=== PATIENT | male | born 1990 | race Native Hawaiian/Other Pacific Islander ===

== ENCOUNTER 2023-12-10 16:48 | Emergency (ER) | payer BC ==
--- NOTE | 2023-12-10 17:23 | ED ---
Abdominal Pain HPI - General Source: patient, RN notes reviewed <Leydi Mesa - Last Filed: 12/10/23 21:30> - General Source: patient, RN notes reviewed, old records reviewed <Cristo Presley - Last Filed: 12/10/23 21:47> - General Stated Complaint: blood in stool,SOB Time Seen by Provider: 12/10/23 17:01 - History of Present Illness Initial Comments: Quick [id number] male with no significant past medical history presents emergency department chief complaint of diffuse abdominal pain, bloody stools and nausea that began this morning. He endorses fevers and chills as well. Denies previous surgical abdominal history. (Leydi Mesa) Patient is a 33-year-old male who presents emergency department complaining of chronic mucousy stools with bright red blood per rectum. Has been ongoing for years. Patient states he had a little bit more severe of an episode at home 1 time. But also had bowel movements without blood. Also states he felt nauseous and had multiple episodes of nonbilious emesis. Thinks he saw streaks of blood in it once. Is not on blood thinners. Does not follow-up with GI physician. Denies chest pain, abdominal pain, diarrhea. Denies any fevers or chills. No sick contacts. Presents for further evaluation at this time. No history of colonoscopy or EGD. (Cristo Presley) - Related Data Previous Rx's Medication Instructions Recorded Famotidine 20 mg PO DAILY 14 Days #14 tab 12/10/23 Allergies Allergy/AdvReac Type Severity Reaction Status Date / Time No Known Allergies Allergy Verified 12/10/23 17:47 Review of Systems ROS Other: All systems not noted in ROS Statement are negative. <Leydi Mesa - Last Filed: 12/10/23 21:30> ROS Other: All systems not noted in ROS Statement are negative. <Cristo Presley - Last Filed: 12/10/23 21:47> ROS Statement: Those systems with pertinent positive or pertinent negative responses have been documented in the HPI. General Exam <Leydi Mesa - Last Filed: 12/10/23 21:30> <Cristo Presley - Last Filed: 12/10/23 21:47> - General Exam Comments Initial Comments: Visual Physical Exam Vital signs reviewed General: Well-appearing, nontoxic, no acute distress. Head: Normocephalic, atraumatic Eyes: PERRLA, EOMI ENT: Airway patent Chest: Nonlabored breathing Skin: No visual rash, normal skin tone Neuro: Alert and oriented 3 Musculoskeletal: No gross abnormalities (Leydi Mesa) General: Appears in no acute distress. HEAD: Normal with no signs of head trauma. EYES: PERRLA, EOMI, conjunctiva normal, no discharge. ENT: Hearing grossly intact, normal oropharynx. RESPIRATORY: Clear breath sounds bilaterally. No wheezes, rales, or rhonchi. C/V: Regular rate and rhythm. S1 and S2 auscultated, no edema, peripheral pulses 2+ and intact throughout ABD: Abdomen soft, nondistended. No significant tenderness to palpation. Rectal exam refused by patient. EXT: Normal range of motion, no obvious deformity SKIN: No rashes or lesions observed on exposed skin. NEURO: Oriented x 4. (Cristo Presley) Course Vital Signs 12/10/23 17:38 Temperature 97.9 F Pulse Rate 102 H Respiratory 18 Rate Blood Pressure 175/103 O2 Sat by Pulse 98 Oximetry Medical Decision Making - Lab Data Result diagrams: 12/10/23 17:56 12/10/23 17:56 <Leydi Mesa - Last Filed: 12/10/23 21:30> - Lab Data Result diagrams: 12/10/23 17:56 12/10/23 17:56 <Cristo Presley - Last Filed: 12/10/23 21:47> - Medical Decision Making I completed the quick note portion of this chart signed Leydi Mesa PA-C (Leydi Mesa) Was pt. sent in by a medical professional or institution ([facility], [facility], urgent care, hospital, or long term...) When possible be specific @ -No Did you speak to anyone other than the patient for history (EMS, parent, family, police, friend...)? What history was obtained from this source @ -No Did you review nursing and triage notes (agree or disagree)? Why? @ -I reviewed and agree with nursing and triage notes Were old charts reviewed (outside hosp., previous admission, EMS record, old EKG, old radiological studies, urgent care reports/EKG's, long term records)? Report findings @ -No old charts were reviewed Differential Diagnosis (chest pain, altered mental status, abdominal pain women, abdominal pain men, vaginal bleeding, weakness, fever, dyspnea, syncope, headache, dizziness, GI bleed, back pain, seizure, CVA, palpatations, mental health, musculoskeletal)? @ -Hemorrhoids, internal hemorrhoid, inflammatory bowel disease, GI bleed, this list is not all inclusive. EKG interpreted by me (3pts min.). @ -None done X-rays interpreted by me (1pt min.). @ -None done CT interpreted by me (1pt min.). @ -CT abdomen pelvis negative for any obvious acute intra-abdominal process. U/S interpreted by me (1pt. min.). @ -None done What testing was considered but not performed or refused? (CT, X-rays, U/S, labs)? Why? @ -None What meds were considered but not given or refused? Why? @ -None Did you discuss the management of the patient with other professionals (professionals i.e. , PA, [facility], lab, RT, psych nurse, outreach and education social worker, germination worker, teacher, ammunition officer, pillowcase turner)? Give summary @ -No Was smoking cessation discussed for >3mins.? @ -No Was critical care preformed (if so, how long)? @ -No Were there social determinants of health that impacted care today? How? (Homelessness, low income, unemployed, alcoholism, drug addiction, transportation, low edu. Level, literacy, decrease access to med. care, half-way, rehab)? @ -No Was there de-escalation of care discussed even if they declined (Discuss DNR or withdrawal of care, Hospice)? DNR status @ -No What co-morbidities impacted this encounter? (DM, HTN, Smoking, COPD, CAD, Can cer, CVA, ARF, Chemo, Hep., AIDS, mental health diagnosis, sleep apnea, morbid obesity)? @ -None Was patient admitted / discharged? Hospital course, mention meds given and route, prescriptions, significant lab abnormalities, going to OR and other pertinent info. @ -Patient presents to the emergency department with chronic findings and complaints. Has a history of chronic mucousy bloody stools. Also had 1 episode of the possible blood in his emesis prior to arrival as well. Originally seen a s a quick note. Vital signs are within acceptable limits. I evaluated the patient when he was placed in room. Laboratory studies are remarkable for a normal hemoglobin. Patient does have a leukocytosis of 17 which is likely nonspecific. BUN is low, not elevated. Lactic acid within normal limits. CT imaging returned remarkable for no obvious acute intra-abdominal process. I discussed results with the patient. Leukocytosis likely reactive. I did offer a rectal exam at this time however patient declines. I did recommend he follow-up with a GI physician and he will be given referral. He will be given prescription for Zofran and famotidine. He was in agreement this plan. He would like to go home. Strict return precautions discussed. I instructed the patient to follow up with their PCP in the next 1-3 days. I explained that the patient should return to the emergency department if they experience any worsening symptoms. Strict return precautions were discussed with the patient. The patient expressed understanding of these instructions. I answered all questions that the patient had. The patient was discharged home in good condition with their prescriptions and follow up information. Undiagnosed new problem with uncertain prognosis? @ -No Drug Therapy requiring intensive monitoring for toxicity (Heparin, Nitro, Insulin, Cardizem)? @ -No Were any procedures done? @ -No Diagnosis/symptom? @ -Chronic rectal bleeding, acute nausea and vomiting Acute, or Chronic, or Acute on Chronic? @ -Chronic Uncomplicated (without systemic symptoms) or Complicated (systemic symptoms)? @ -Uncomplicated Side effects of treatment? @ -No Exacerbation, Progression, or Severe Exacerbation? @ -No Poses a threat to life or bodily function? How? (Chest pain, USA, NV, pneumonia, PE, COPD, DKA, ARF, appy, cholecystitis, CVA, Diverticulitis, Homicidal, Suicidal, threat to staff... and all critical care pts) @ -Unlikely (Cristo Presley) - Lab Data Lab Results 12/10/23 12/10/23 12/10/23 Range/Units 17:56 17:56 17:56 WBC 17.4 H (3.8-10.6) k/uL RBC 5.81 (4.30-5.90) m/uL Hgb 17.2 (13.0-17.5) gm/dL Hct 52.8 (39.0-53.0) % MCV 90.9 (80.0-100.0) fL MCH 29.7 (25.0-35.0) pg MCHC 32.7 (31.0-37.0) g/dL RDW 12.4 (11.5-15.5) % Plt Count 343 (150-450) k/uL MPV 7.1 Neutrophils % 92 % Lymphocytes % 6 % Monocytes % 2 % Eosinophils % 1 % Basophils % 0 % Neutrophils # 15.9 H (1.3-7.7) k/uL Lymphocytes # 1.0 (1.0-4.8) k/uL Monocytes # 0.3 (0-1.0) k/uL Eosinophils # 0.1 (0-0.7) k/uL Basophils # 0.0 (0-0.2) k/uL Sodium 140 (137-145) mmol/L Potassium 4.1 (3.5-5.1) mmol/L Chloride 106 (98-107) mmol/L Carbon Dioxide 22 (22-30) mmol/L Anion Gap 12 mmol/L BUN 7 L (9-20) mg/dL Creatinine 0.60 L (0.66-1.25) mg/dL Est GFR (CKD-EPI)AfAm >90 (>60 ml/min/1.73 sqM) Est GFR (CKD-EPI)NonAf >90 (>60 ml/min/1.73 sqM) Glucose 128 H (74-99) mg/dL Plasma Lactic Acid Marty 2.0 (0.7-2.0) mmol/L Calcium 10.4 H (8.4-10.2) mg/dL Total Bilirubin 0.8 (0.2-1.3) mg/dL AST 22 (17-59) U/L ALT 26 (4-49) U/L Alkaline Phosphatase 98 (38-126) U/L Total Protein 8.1 (6.3-8.2) g/dL Albumin 5.0 (3.5-5.0) g/dL Amylase 63 (30-110) U/L Lipase 112 (23-300) U/L Disposition <Leydi Mesa - Last Filed: 12/10/23 21:30> Is patient prescribed a controlled substance at d/c from ED?: No Time of Disposition: 21:26 <Cristo Presley - Last Filed: 12/10/23 21:47> Clinical Impression: Rectal bleeding Disposition: HOME SELF-CARE Condition: Good Instructions (If sedation given, give patient instructions): Gastrointestinal Bleeding (ED) Additional Instructions: Follow-up with gastroenterology Dr. Vega. I believe you need a EGD as well as colonoscopy. Please return to the emergency department if worsening symptoms. Prescriptions: Famotidine 20 mg PO DAILY 14 Days #14 tab Referrals: None,Stated [Primary Care Provider] - 1-2 days Gladis Vega MD [STAFF PHYSICIAN] - 1-2 days Forms: Area PCPs
[2023-12-10 17:47] VITALS: BP 175/103; PULSE 102; RESP 18; TEMP 97.9
[2023-12-10 18:18] LABS: Basophils % (A) 0 %; Eosinophils # (A) 0.1 k/uL (0-0.7); Eosinophils % (A) 1 %; HCT 52.8 % (39.0-53.0); HGB 17.2 gm/dL (13.0-17.5); Lymphocytes % (A) 6 %; MCH 29.7 pg (25.0-35.0); MCHC 32.7 g/dL (31.0-37.0); MCV 90.9 fL (80.0-100.0); Mean Platelet Volume 7.1; Monocytes # (A) 0.3 k/uL (0-1.0); Monocytes % (A) 2 %; Neutrophils # (A) 15.9 k/uL (1.3-7.7); Neutrophils % (A) 92 %; Platelet Count 343 k/uL (150-450); RBC 5.81 m/uL (4.30-5.90); RDW 12.4 % (11.5-15.5); WBC 17.4 k/uL (3.8-10.6)
[2023-12-10 18:28] LABS: ALT 26 U/L (4-49); AST 22 U/L (17-59); African American GFR (CKD) >90 (>60 ml/min/1.73 sqM); Alkaline Phosphatase 98 U/L (38-126); Amylase 63 U/L (30-110); Anion Gap 12 mmol/L; Blood Urea Nitrogen 7 mg/dL (9-20); Calcium 10.4 mg/dL (8.4-10.2); Carbon Dioxide 22 mmol/L (22-30); Chloride 106 mmol/L (98-107); Glucose 128 mg/dL (74-99); Lipase 112 U/L (23-300); Non-African American GFR(CKD) >90 (>60 ml/min/1.73 sqM); Potassium 4.1 mmol/L (3.5-5.1); Sodium 140 mmol/L (137-145); Total Bilirubin 0.8 mg/dL (0.2-1.3); Total Protein 8.1 g/dL (6.3-8.2)
--- NOTE | 2023-12-10 19:05 | CT ---
EXAMINATION TYPE: CT abdomen pelvis w con DATE OF EXAM: 12/10/2023 COMPARISON: None HISTORY: blood in stool CT DLP: 1872 mGycm Automated exposure control for dose reduction was used. TECHNIQUE: Helical acquisition of images was performed from the lung bases through the pelvis. CONTRAST: Performed without Oral Contrast and with IV Contrast, patient injected with 100 ml mL of Isovue 300. FINDINGS: The lung bases are clear. The gallbladder is normal without distention, wall thickening, pericholecystic fluid or gallstones. T here is no biliary ductal dilatation. There is no focal mass or organomegaly involving the liver, pancreas, spleen or adrenal glands. There is no solid renal mass or hydronephrosis and there is homogeneous contrast enhancement of the r enal parenchyma. The caliber the abdominal aorta is normal is no retroperitoneal adenopathy or hemorr sherin. The bowel loops are normal in caliber and there is no evidence of dilatation or obstruction. No infla mmatory changes are identified in the bowel wall or mesentery. There is no free intraperitoneal air or fluid. No pelvic mass, free fluid, abscess or adenopathy. The osseous structures and soft tissues are intact. IMPRESSION: No significant abnormality seen. [facility], , 12/10/2023 7:03 PM
[2023-12-10] MEDS: ONDANSETRON 4 MG ODT STARTER PACK 2 TAB BTL PO STA (21:55)
[2023-12-10] MEDS: FAMOTIDINE 20 MG/2 ML VIAL IV STA (21:55)
[2023-12-10] MEDS: ONDANSETRON 4 MG/2 ML VIAL IVP STA (21:55)
== END 2023-12-10 22:02 | disposition home or self-care (01) ==
LOC: EC 16:48
DX: K62.5 Hemorrhage of anus and rectum (principal)
CPT/HCPCS: 36415; 74177; 80053; 82150; 83605; 83690; 85025; 96374; 96375; 99284

== ENCOUNTER 2024-03-07 06:41 | Day surgery (SDC) | payer BC ==
[2024-03-05 15:20] VITALS: BMI 39.0
[2024-03-07 07:29] VITALS: TEMP 98.7
[2024-03-07] MEDS: LACTATED RINGERS 1,000 ML IV SCH (07:33)
[2024-03-07] MEDS: IV FLUID CONTINUATION 1,000 ML IV ONE (07:34)
[2024-03-07] MEDS ORDERED: LIDOCAINE 1% INJ 10MG/ML (20 ML MDV) ONE (07:50)
[2024-03-07] MEDS ORDERED: PROPOFOL 10 MG/ML 20 ML VIAL IV ONE (07:50)
--- NOTE | 2024-03-07 08:11 | P.PCN ---
Date of Procedure: 03/07/24 Procedure(s) Performed: Brief history: Patient is a pleasant 33-year-old white male scheduled for an elective upper endoscopy as well as colonoscopy as a part of evaluation of remittent episodes of nausea vomiting and diarrhea for the last 1 to 2 years duration. He has 3-4 loose watery bowel movements daily with occasional blood in the stool Procedure performed: Esophagogastroduodenoscopy with biopsy Colonoscopy with biopsy and snare polypectomy Preoperative diagnosis: Nausea vomiting and diarrhea with intermittent rectal bleeding of 2 years duration Anesthesia: MAC Procedure: After informed consent was obtained from the patient was brought into the endoscopy unit and IV sedation was administered by anesthesia under continuous monitoring. Initially upper endoscopy was done. The Olympus GF 160 video endoscope was inserted inserted into the mouth and esophagus intubated without any difficulty and was gradually advanced into the stomach and duodenum and carefully examined. The bulb and second part of the duodenum appeared normal. The scope was then withdrawn into the stomach adequately insufflated with air and upon careful examination the antrum and body, cardia and fundus appeared normal. The scope was then withdrawn into the esophagus. The GE junction was located at 40 cm to the incisors. It appeared regular with no erythema erosions or ulcerations. Rest of the esophagus appeared normal. Patient tolerated the procedure well. At this time the patient continued to remain sedation. Initial digital rectal examination was normal. Olympus CF 160 video colonoscope was then inserted into the rectum and gradually advanced to the cecum without any difficulty. Careful examination was performed as the scope was gradually being withdrawn. The prep was excellent. Middle ileum was intubated in 20 cm visualized and appeared normal. The cecum, ascending colon, normal. The transverse colon there was a 4 mm polyp removed by cold biopsy. In the descending colon there was a 2 cm pedunculated polyp removed by snare polypectomy. Scattered left-sided diverticulosis seen. There was patchy areas of erythema noted in the sigmoid colon between 20 to 30 cm from the anal verge and biopsies were done from this area. Rest of the sigmoid colon and rectum appeared normal. Random biopsies were done from the ascending and descending colon to rule out microscopic/collagenous colitis retroflexion was performed in the rectum and small internal hemorrhoids s were noted. Patient tolerated the procedure well. Impression: 1. Upper endoscopy revealed mild antral gastritis no evidence of esophagitis or peptic ulcer disease 2. Colonoscopy revealed 4 mm transverse colon polyp status post cold biopsy and 2 cm pedunculated descending colon polyp status post snare polypectomy, scattered sigmoid diverticulosis, patchy areas of erythema in the sigmoid colon and grade 2 internal hemorrhoids Recommendations: Findings of this examination were discussed with the patient as well as his family. He was advised to follow-up with the biopsy results. He will be seen in the office in 2 weeks. The biopsy reveals adenoma he can have repeat colonoscopy in 3 years
[2024-03-07 08:21] VITALS: RESP 16
[2024-03-07 08:31] VITALS: BP 129/85; PULSE 78
== END 2024-03-07 08:45 | disposition home or self-care (01) ==
LOC: ORWHC2ENDO 06:41
PROVIDERS: ATTEND Internal Medicine Gastroenterology
DX: K29.50 Unspecified chronic gastritis without bleeding (principal); B96.81 Helicobacter pylori [H. pylori] as the cause of diseases classified elsewhere; D12.3 Benign neoplasm of transverse colon; D12.4 Benign neoplasm of descending colon; K57.30 Diverticulosis of large intestine without perforation or abscess without bleeding; K64.1 Second degree hemorrhoids; K63.89 Other specified diseases of intestine; K62.5 Hemorrhage of anus and rectum; E66.01 Morbid (severe) obesity due to excess calories; F17.210 Nicotine dependence, cigarettes, uncomplicated; F12.90 Cannabis use, unspecified, uncomplicated; Z90.89 Acquired absence of other organs
CPT/HCPCS: 88305; 88342; 45380; 45385; 43239; J2003; J2704